=== PATIENT | male | born 1965 | race American Indian/Alaskan Native ===

== ENCOUNTER 2019-01-25 07:11 | Emergency (ER) | payer SELFPAY ==
[2019-01-25 08:09] LABS: Alanine Aminotransferase 10 units/L (7-56); Albumin 4.3 g/dL (3.9-5); BUN/Creatinine Ratio 9; Blood Urea Nitrogen 11 mg/dL (9-20); Calcium 9.2 mg/dL (8.4-10.2); Hemolysis Index 6
[2019-01-25 08:13] LABS: Basophils % (Auto) 0.1 % (0.0-1.8); Hematocrit 41.5 % (35.5-45.6); Hemoglobin 14.2 gm/dl (11.8-15.2); Lymphocytes # (Auto) 0.6 K/mm3 (1.2-5.4); Lymphocytes % (Auto) 7.6 % (13.4-35.0); Mean Corpuscular HGB Conc 34 % (32-34); Mean Corpuscular Volume 87 fl (84-94); Monocytes # (Auto) 0.2 K/mm3 (0.0-0.8); Monocytes % (Auto) 2.8 % (0.0-7.3); Platelet Count 214 K/mm3 (140-440); Red Blood Count 4.78 M/mm3 (3.65-5.03); Red Cell Distribution Width 13.1 % (13.2-15.2)
[2019-01-25] MEDS ORDERED: PEPCID IV ONE (08:20)
[2019-01-25] MEDS ORDERED: ANTIVERT PO ONE ×2 (08:20→10:13)
[2019-01-25] MEDS ORDERED: ZOFRAN IV ONE (08:20)
[2019-01-25] MEDS ORDERED: NACL 0.9% 1000 ML 1,000 ML IV ONE ×2 (08:20→10:13)
[2019-01-25 12:32] LABS: Bilirubin,Urine NEG (Negative); Blood,Urine NEG (Negative); Color,Urine Yellow (Yellow); Mucus,Urine FEW /HPF; Protein,Urine <15 mg/dL mg/dL (Negative); Urobilinogen,Urine < 2.0 mg/dL (<2.0); WBC,Urine < 1.0 /HPF (0.0-6.0)
[2019-01-25 12:41] VITALS: BP 176/94
--- NOTE | 2019-01-25 12:45 | Cat Scan Report ---
FINAL REPORT EXAM: CT HEAD/BRAIN WO CON HISTORY: Persistent vertigo TECHNIQUE: CT of the Head without IV contrast. PRIORS: None currently available. FINDINGS: Chronic appearing lacunar type infarct in the both basal ganglias and right thalamus. Similar finding noted within the right periventricular white matter. Decreased attenuation regions in the periventricular and subcortical white matter are nonspecific and may represent small vessel ischemic disease, encephalopathy, edema, or a demyelinating process. Smal l vessel ischemic disease (leukoaroaiosis) favored. Small focal chronic appearing infarcts in the right and left brainstem is unremarkable. Similar findi ngs in both cerebellar hemispheres. Vascular calcifications. There is no evidence for acute ischemia. There is no hemorrhage. There is no midline shift. There is no hydrocephalus. There is no mass. Age appropriate nassar-white matter attenuation is noted. There is no calvarial fracture. The temporal bones demonstrate aerated mastoid air cells. The middle ears appear unremarkable. Paranasal sinuses are unremarkable. Globes are intact. IMPRESSION: No acute intracranial findings. Chronic ischemic disease. Chronic appearing focal infarcts in the brainstem and cerebellar hemisphere s may be related to history.
--- NOTE | 2019-01-25 14:44 | Cat Scan Report ---
FINAL REPORT EXAM: CT ANGIO NECK HISTORY: Persistent vertigo TECHNIQUE: CTA of the Head with IV contrast. Coronal and sagittal reconstructed imaging provided. CTA of the Neck with IV contrast. Coronal and sagittal reconstructed imaging provided. Carotid stenos is calculated by the NASCET method. PRIORS: None currently available. FINDINGS: HEAD: The anterior and posterior circulations appear unremarkable. There is no aneurysm, dissection, vascular malformation, or significant vascular stenosis. There is n o evidence for vasculitis. Dominant right intracranial vertebral artery. Left is hypoplastic. NECK: RIGHT CAROTID: Origin: Unremarkable. Common: Unremarkable. Bifurcation: Unremarkable. Internal: Unremarkable. External: Unremarkable. There is no aneurysm, dissection, vascular malformation, or significant vascular stenosis. There is n o evidence for vasculitis. LEFT CAROTID: Origin: Unremarkable. Common: Unremarkable. Bifurcation: Unremarkable. Internal: Unremarkable. External: Unremarkable. There is no aneurysm, dissection, vascular malformation, or significant vascular stenosis. There is n o evidence for vasculitis. VERTEBRALS: Dominant right. Hypoplastic left. There is no aneurysm, dissection, vascular malformation, or significant vascular stenosis. There is n o evidence for vasculitis. OTHER: Partially imaged thoracic aorta does not demonstrate any aneurysm or dissection. Minimal atherosclero tic disease. Major branch arteries are patent. IMPRESSION: Unremarkable CTA of the head and neck.
--- NOTE | 2019-01-25 15:13 | Emergency Department Report ---
ED N/V/D HPI - General Chief complaint: Nausea/Vomiting/Diarrhea Stated complaint: DEHYDRATED/WEAK Time Seen by Provider: 01/25/19 08:13 Source: patient Mode of arrival: Wheelchair Limitations: No Limitations - History of Present Illness Initial comments: Patient is a 53-year-old Swazi male who is presenting with dizziness and nausea vomiting. Patient states symptoms started last night spontaneously. Patient states at this point he is just dry heaving. Patient feels very nauseous when he turns his head when he tries to sit up. Patient is better when lying flat. The patient denies any fevers chills cough cold or congestion at this time. - Related Data Previous Rx's Medication Instructions Recorded Last Taken Type Meclizine [Antivert] 25 mg PO TID PRN #12 tablet 01/25/19 Unknown Rx Ondansetron [Zofran Odt] 4 mg PO Q8HR PRN #10 tab.rapdis 01/25/19 Unknown Rx predniSONE [Deltasone] 20 mg PO QDAY #5 tab 01/25/19 Unknown Rx Allergies Allergy/AdvReac Type Severity Reaction Status Date / Time No Known Allergies Allergy Unverified 01/25/19 07:16 ED Review of Systems ROS: Stated complaint: DEHYDRATED/WEAK Other details as noted in HPI Comment: All other systems reviewed and negative ED Past Medical Hx - Social History Smoking Status: Never Smoker Substance Use Type: Alcohol, Cocaine - Medications Home Medications: Home Medications Medication Instructions Recorded Confirmed Last Taken Type Meclizine [Antivert] 25 mg PO TID PRN #12 tablet 01/25/19 Unknown Rx Ondansetron [Zofran Odt] 4 mg PO Q8HR PRN #10 tab.rapdis 01/25/19 Unknown Rx predniSONE [Deltasone] 20 mg PO QDAY #5 tab 01/25/19 Unknown Rx ED Physical Exam - General Limitations: No Limitations General appearance: alert, in distress - Head Head exam: Present: atraumatic, normocephalic - Eye Eye exam: Present: normal appearance - ENT ENT exam: Present: mucous membranes moist - Neck Neck exam: Present: normal inspection - Respiratory Respiratory exam: Present: normal lung sounds bilaterally. Absent: respiratory distress, wheezes, rales, rhonchi - Cardiovascular Cardiovascular Exam: Present: regular rate, normal rhythm. Absent: systolic murmur, diastolic murmur, rubs, gallop - GI/Abdominal GI/Abdominal exam: Present: soft, normal bowel sounds. Absent: distended, tenderness, guarding, rebound - Rectal Rectal exam: Present: deferred - Extremities Exam Extremities exam: Present: normal inspection - Back Exam Back exam: Present: normal inspection - Neurological Exam Neurological exam: Present: alert, oriented X3 - Psychiatric Psychiatric exam: Present: normal affect, normal mood - Skin Skin exam: Present: warm, dry, intact, normal color. Absent: rash ED Course Vital Signs 01/25/19 01/25/19 01/25/19 07:18 08:52 12:39 Temperature 97.7 F 98.4 F Pulse Rate 52 L 65 Respiratory 16 16 16 Rate Blood Pressure 176/94 Blood Pressure 166/85 [Right] O2 Sat by Pulse 97 99 Oximetry ED Medical Decision Making - Lab Data Result diagrams: 01/25/19 07:35 01/25/19 07:35 - Radiology Data Patient received a liter of IV fluid and Zofran and Antivert. After to recheck the patient after these medications patient continued to have severe dizziness. Decision was made to rule out posterior stroke. Patient has CTA of the head and neck performed which showed no acute abdomen to the vessels. Patient's CT head without contrast shows chronic ischemic changes but no acute ischemic changes are present. After the second liter of fluid and 1 additional dose of Antivert patient is started to have some improvement. Patient was monitored approximately 6 hours before he started to feel better. Patient be discharged home. Critical care attestation.: If time is entered above; I have spent that time in minutes in the direct care of this critically ill patient, excluding procedure time. ED Disposition Clinical Impression: Vertigo Disposition: DC-01 TO HOME OR SELFCARE Is pt being admited?: No Does the pt Need Aspirin: No Condition: Stable Instructions: Benign Paroxysmal Positional Vertigo (ED) Referrals: EFREN KEYES MD [Primary Care Provider] - 3-5 Days Time of Disposition: 15:13
== END 2019-01-25 15:26 | disposition home or self-care (01) ==
LOC: ED 07:11
DX: R42 Dizziness and giddiness (principal); R11.2 Nausea with vomiting, unspecified
CPT/HCPCS: 36415; 70450; 70496; 70498; 80053; 81001; 85025; 93005; 93010; 96361; 96374; 96375; 99284; J2405; J7030; Q9967

== ENCOUNTER 2020-07-21 18:42 | Emergency (ER) | payer SELFPAY ==
[2020-07-21] MEDS ORDERED: SUCCINYLCHOLINE CHLORIDE 200 MG/10 ML INJ MDV ONE (19:00)
[2020-07-21] MEDS ORDERED: ETOMIDATE 20 MG/10 ML INJ IV ONE (19:00)
--- NOTE | 2020-07-21 19:00 | Cat Scan Report ---
CT head/brain wo con INDICATION: neuro deficits <6hrs or sx present upon awakening. TECHNIQUE: Routine CT head without contrast. All CT scans at this location are performed using CT dos e reduction for ALARA by means of automated exposure control. COMPARISON: None. FINDINGS: BRAIN / INTRACRANIAL CONTENTS: There is a right thalamic hemorrhage that measures about 2.5 cm in dim ension with mild surrounding edema and mild local mass effect. There is a compression to the ventricl e with blood in the right lateral ventricle, third ventricle, and fourth ventricle, without hydroceph alus. ORBITS: No significant abnormality of visualized orbits. SINUSES / MASTOIDS: No significant abnormality of visualized sinuses and mastoid air cells. ADDITIONAL FINDINGS: None. IMPRESSION: 1. Right thalamic hemorrhage with decompression into the ventricular system. No hydrocephalus or sign ificant adverse mass effect at present. CODE STROKE: Time of Communication (INJECTION PRESS OPERATOR/CDT): 5:55 PM Licensed Practitioner Receiving Report: ER physician Signer Name: Addy Jarquin MD Signed: 07/21/2020 6:55 PM Workstation Name: [id number]
[2020-07-21 19:08] LABS: Basophils % (Auto) 0.4 % (0.0-1.8); Eosinophils # (Auto) 0.1 K/mm3 (0.0-0.4); Eosinophils % (Auto) 0.5 % (0.0-4.3); Lymphocytes # (Auto) 1.6 K/mm3 (1.2-5.4); Lymphocytes % (Auto) 14.6 % (13.4-35.0); Mean Corpuscular HGB Conc 36 % (32-34); Mean Corpuscular Volume 85 fl (84-94); Monocytes % (Auto) 9.6 % (0.0-7.3); Platelet Count 235 K/mm3 (140-440); Red Blood Count 4.35 M/mm3 (3.65-5.03); Red Cell Distribution Width 12.8 % (13.2-15.2)
[2020-07-21] MEDS ORDERED: SODIUM CHLORIDE 0.9% 1000 ML 2,000 ML ONE (19:08)
--- NOTE | 2020-07-21 19:11 | Emergency Department Report ---
ED Neuro Deficit HPI - General Chief Complaint: Altered Mental Status Stated Complaint: POSS STOKE Time Seen by Provider: 07/21/20 18:48 Source: EMS Mode of arrival: Stretcher Limitations: Altered Mental Status - History of Present Illness Initial Comments: [facility] TeleStroke Metrics: LKW: 1800 Door Time: 1842 [facility] Contacted: 1843 [facility] at Bedside: 1850 NIHSS: 1855 Decision on Alteplase: Not to give due to his acute intracranial hemorrhage Interventional Candidate: Not a candidate due to his acute intracranial hemorrhage Chief Complaint: Altered mental status HPI: Asked to see this patient in emergent telemedicine consultation utilizing interactive audio and video technologies. Consultation was performed with assistance of ancillary / medical staff at bedside. 54-year-old -[place]ian male who comes to the emergency room by EMS as a stroke alert for altered mental status and left-sided weakness. No family is currently at bedside. EMS reports that the patient had some type of stroke in January 2020 and had fully resolved. His medication list is unknown. According to EMS, had spoken to the patient around 6 PM and he sounded fine. She arrived home around 6:30 PM, and found him on the floor. He apparently fell. She noted left-sided weakness. EMS was called. Blood sugar was 180 in the field and blood pressure was 119/80. Currently, the patient remains nonverbal and poorly responsive. Head CT shows an acute right thalamic hemorrhage with intraventricular extension. Blood pressures have been stable with systolics in the 120s. PMH: Prior ischemic stroke in January 2020 and SOC: Patient is . FMH: Unknown. ROS: Unobtainable at this time due to his altered mental status. No family at bedside. VS: Pulse 78, blood pressure 120/78, oxygen saturation 94% Exam: Patient is in no apparent distress. Patient appears as stated age. No ob vious acute respiratory or cardiac distress. Patient is well groomed and well- nourished. 1a- LOC: Not keenly responsive - 2 1b- LOC questions: Answers neither questions correctly - 2 1c- LOC commands- Performs neither tasks correctly- 2 2- Gaze: Normal; no gaze paresis or gaze deviation - 0 3- Visual Hagen: normal, no Visual field deficit - 0 4- Facial movements: no facial palsy - 0 5- Upper limb motor - bilateral arm drifts - 6 6- Lower limb motor - bilateral leg drifts - 6 7- Limb Coordination: absent ataxia - 0 8- Sensory: severe sensory loss - 2 9- Language - global aphasia - 3 10- Speech - severe dysarthria - 2 11- Neglect / Extinction - none found - 0 NIHSS score: 25 Diagnostic Data: Blood glucose 180 CT head showed an acute right thalamic intracranial hemorrhage with significant intraventricular extension involving the right lateral ventricle, third ventricle, and fourth ventricle. Medical Data Reviewed: 1.Data?reviewed include clinical labs, radiology,?and medical tests; 2.Tests?results discussed w/performing or interpreting physician; 3.Obtaining/reviewing old medical records; 4.Obtaining?case history from another source; 5.Independent?review of image, tracing, or specimen. Medical Decision Making: - Extensive number of diagnosis or management options are considered below. - Extensive amount of complex data reviewed. - High risk of complication and/or morbidity or mortality are associated with differential diagnostic considerations below. - There may be?uncertain?outcome and increased probability of prolonged functional impairment or high probability of severe prolonged functional impairment associated with some of these differential diagnosis. Differential Diagnosis for Stroke: 1.?Cardioembolic?stroke 2. Small vessel disease/lacune 3. Thromboembolic, [id number] mechanism 4.?Hypercoagulable?state-related infarct 5. Transient ischemic attack 6. Thrombotic mechanism, large artery disease Assessment: 1. 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 Hypertension 3. Prior stroke in January 2020 Recommendations: Patient has an acute right thalamic hemorrhage with significant intraventricular extension involving the lateral ventricle, third ventricle, and fourth ventricle. Patient is at high risk of developing obstructive hydrocephalus. Patient will be intubated for airway protection. Patient will be transferred to a tertiary center that can offer emergent neurosurgical services. Maintain systolic blood pressure be less than 150 Consult inpatient neurology team to assist with evaluation and management Continue supportive care Thank you for allowing [facility] to participate in the care of your patient. Please call me, Dr. Hurley, with any questions at [phone]. Case discussed with the ER staff and Dr. Martino. Critical Care notation: I was called to see this critical patient emergently. I personally evaluated this critical patient for acute stroke evaluation, and determining their eligibi lity for IV Alteplase and interventional therapies. I have spent approximately 8 minutes with the patient, including time at bedside, time discussing the case with other physicians, reviewing plan of care, and time independently reviewing the records and scans. - Related Data Home Medications: Previous Rx's Medication Instructions Recorded Last Taken Type Meclizine [Antivert] 25 mg PO TID PRN #12 tablet 01/25/19 Unknown Rx Ondansetron [Zofran Odt] 4 mg PO Q8HR PRN #10 tab.rapdis 01/25/19 Unknown Rx predniSONE [Deltasone] 20 mg PO QDAY #5 tab 01/25/19 Unknown Rx Allergies/Adverse Reactions: Allergies Allergy/AdvReac Type Severity Reaction Status Date / Time No Known Allergies Allergy Unverified 01/25/19 07:16 ED Review of Systems ROS: Stated complaint: POSS STOKE Other details as noted in HPI ED Past Medical Hx - Social History Smoking Status: Never Smoker Substance Use Type: Alcohol, Cocaine - Medications Home Medications: Home Medications Medication Instructions Recorded Confirmed Last Taken Type Meclizine [Antivert] 25 mg PO TID PRN #12 tablet 01/25/19 Unknown Rx Ondansetron [Zofran Odt] 4 mg PO Q8HR PRN #10 tab.rapdis 01/25/19 Unknown Rx predniSONE [Deltasone] 20 mg PO QDAY #5 tab 01/25/19 Unknown Rx ED Neuro Physical Exam - General Suspected Stroke: No Critical care attestation.: If time is entered above; I have spent that time in minutes in the direct care of this critically ill patient, excluding procedure time. ED Disposition Clinical Impression: Thalamic hemorrhage Disposition: DC/TX-70 ANOTHER TYPE HLTHCARE Is pt being admited?: No Does the pt Need Aspirin: No Condition: Critical
[2020-07-21] MEDS ORDERED: LIP THERAPY VASELINE TP PRN (19:13)
[2020-07-21] MEDS ORDERED: MINERAL OIL/PETROLATUM, WHITE OPHTH OINT 3.5 GM OU PRN (19:13)
[2020-07-21 19:15] LABS: Hematocrit 36.8 % (35.5-45.6); Hemoglobin 13.3 gm/dl (11.8-15.2)
[2020-07-21 19:20] LABS: INR 0.96 (0.87-1.13); Partial Thromboplastin Time 28.6 Sec. (24.2-36.6)
[2020-07-21 19:23] LABS: BUN/Creatinine Ratio 9; Blood Urea Nitrogen 18 mg/dL (9-20); Calcium 9.5 mg/dL (8.4-10.2); Hemolysis Index 14
[2020-07-21 19:27] LABS: Alanine Aminotransferase 12 units/L (7-56); Albumin 4.7 g/dL (3.9-5)
--- NOTE | 2020-07-21 19:27 | Emergency Department Report ---
ED Neuro Deficit HPI - General Chief Complaint: Altered Mental Status Stated Complaint: POSS STOKE Time Seen by Provider: 07/21/20 18:48 Source: EMS Mode of arrival: Stretcher Limitations: Altered Mental Status - History of Present Illness Initial Comments: Patient is 54-year-old male with unknown past medical history except for possible stroke few month ago according to his reported to EMS and that completely resolved by itself. Patient brought to the emergency room via EMS from home for evaluation of possible stroke. Patient stated that last time she saw him was 6:00 PM and he was sound fine and when she came back from outside around 6:30 PM she found him on the floor with altered mental status and unresponsive. Upon arrival to the ER patient immediately moved to CT for a stat CT brain. Stroke telemetry neurology immediately consulted and patient examined by Dr. Chung. CT brain showed a right thalamic hemorrhage with extension to the ventricles. No mass-effect at this moment. When patient returned from the CT scan patient became more obtunded. GCS 8 3 patient immediately intubated by me for airway protection -: Sudden Location: right face, right arm, altered Presenting Symptoms: Present: Altered Mental Status - Related Data Home Medications: Previous Rx's Medication Instructions Recorded Last Taken Type Meclizine [Antivert] 25 mg PO TID PRN #12 tablet 01/25/19 Unknown Rx Ondansetron [Zofran Odt] 4 mg PO Q8HR PRN #10 tab.rapdis 01/25/19 Unknown Rx predniSONE [Deltasone] 20 mg PO QDAY #5 tab 01/25/19 Unknown Rx Allergies/Adverse Reactions: Allergies Allergy/AdvReac Type Severity Reaction Status Date / Time No Known Allergies Allergy Unverified 01/25/19 07:16 ED Review of Systems ROS: Stated complaint: POSS STOKE Other details as noted in HPI Comment: Unobtainable due to pts medical conditions ED Past Medical Hx - Social History Smoking Status: Never Smoker Substance Use Type: Alcohol, Cocaine - Medications Home Medications: Home Medications Medication Instructions Recorded Confirmed Last Taken Type Meclizine [Antivert] 25 mg PO TID PRN #12 tablet 01/25/19 Unknown Rx Ondansetron [Zofran Odt] 4 mg PO Q8HR PRN #10 tab.rapdis 01/25/19 Unknown Rx predniSONE [Deltasone] 20 mg PO QDAY #5 tab 01/25/19 Unknown Rx ED Neuro Physical Exam - General Limitations: Altered Mental Status General appearance: obtunded Suspected Stroke: Yes - Head Head exam: Present: atraumatic, normocephalic, normal inspection - Eye Eye exam: Present: normal appearance - ENT ENT exam: Present: normal exam, normal orophraynx, mucous membranes moist - Neck Neck exam: Present: normal inspection - Respiratory Respiratory exam: Present: normal lung sounds bilaterally - Cardiovascular Cardiovascular Exam: Present: regular rate, normal rhythm, normal heart sounds - GI/Abdominal GI/Abdominal exam: Present: soft, normal bowel sounds. Absent: distended, tenderness, guarding, rebound, rigid, hyperactive bowel sounds, hypoactive bowel sounds, organomegaly, mass, bruit, pulsatile mass, hernia - Extremities Exam Extremities exam: Present: normal inspection, full ROM - Back Exam Back exam: Present: normal inspection, full ROM - Neurological Exam Neurological exam: Present: altered - NIHSS Assessment Interval: Baseline 1a. Level of Consciousness: coma/unresponsive 1b. LOC Questions: dysarthric/intubated 1c. LOC Commands: performs no tasks correctly 2. Best Gaze: partial gaze palsy 3. Visual: bilateral hemianopia 4. Facial Palsy: minor paralysis 5b. Motor Arm Right: drift 5a. Motor Arm Left: drift 6a. Motor Leg Left: drift 6b. Motor Leg Right: drift 7. Limb Ataxia: absent 8. Sensory: coma/unresponsive 9. Best Language: coma/unresponsive 10. Dysarthria: mute/anarrthric 11. Extinction/Inattention: no abnormality Total Score: 22 Stroke Severity: Severe Stroke - Skin Skin exam: Present: warm, intact, normal color ED Course Vital Signs 07/21/20 07/21/20 07/21/20 19:35 19:45 20:00 Pulse Rate 71 68 66 Respiratory 19 19 19 Rate Blood Pressure Blood Pressure 138/99 151/95 150/99 [Left] O2 Sat by Pulse 100 100 100 Oximetry 07/21/20 07/21/20 07/21/20 20:10 20:33 20:42 Pulse Rate 63 77 58 L Respiratory 18 18 Rate Blood Pressure Blood Pressure 152/100 134/100 [Left] O2 Sat by Pulse 100 98 100 Oximetry 07/21/20 07/21/20 07/21/20 21:04 21:15 21:30 Pulse Rate 55 L 53 L 53 L Respiratory 21 20 20 Rate Blood Pressure 111/75 117/77 Blood Pressure 106/71 [Left] O2 Sat by Pulse 100 100 100 Oximetry 07/21/20 07/21/20 07/21/20 21:37 21:45 22:00 Pulse Rate 53 L 53 L 52 L Respiratory 21 20 20 Rate Blood Pressure 113/79 119/76 Blood Pressure 117/77 [Left] O2 Sat by Pulse 100 100 100 Oximetry 07/21/20 07/21/20 22:15 22:45 Pulse Rate 51 L 63 Respiratory 20 24 Rate Blood Pressure 125/75 130/74 Blood Pressure [Left] O2 Sat by Pulse 100 100 Oximetry - Reevaluation(s) Reevaluation #1: 07/21/20 19:23 I discussed the patient with [facility] personnel historic preservationist Kimmy. She stated that she will call me back. Reevaluation #2: 07/21/20 19:47 I discussed the patient with Dr. Alexandre, neuro garbage person at [facility] in she stated that she will accept the patient but they do not have any bed availability and she will with the patient on the waiting list. Reevaluation #3: 07/21/20 19:50 Contacted [facility] for possible transfer. Reevaluation #4: 07/21/20 20:06 I discussed the patient with Dr. Castellano, neurosurgeon from [facility] [place]. He advised to repeat the CT brain to see the extension of the hemorrhage since patient condition started deteriorating so he can triage patient better but he stated that he accepted the patient to be transferred to his facility. Reevaluation #5: 07/21/20 22:45 I discussed the patient with [facility] for possible transfer as I just learned that [facility] available bed. [facility] was not called initially because 1 of my colleagues trying to send the patient he was told that they are on critical care diversion. However [facility] informed me that they do not have any critical care beds available. 07/21/20 22:47 - Intubation Time Out Performed: Yes Sedative: Etomidate Paralytic: Succinylcholine Laryngoscope: Ginny Size: 4 ET Tube Size: 7.5 Tube Secured Depth (cm): 20 Tube Secured Location: teeth Tube Placement Confirmation: visualized tube passing t, equal breath sounds bilat, no breath sounds over epi, confirmation by capnometr Patient Tolerated Procedure: well, no complications Intubation Complications: none - Lab Data Result diagrams: 07/21/20 18:56 07/21/20 18:56 Lab Results 07/21/20 07/21/20 07/21/20 Range/Units 18:56 18:56 18:56 WBC 10.8 (4.5-11.0) K/mm3 RBC 4.35 (3.65-5.03) M/mm3 Hgb 13.3 (11.8-15.2) gm/dl Hct 36.8 (35.5-45.6) % MCV 85 (84-94) fl MCH 31 (28-32) pg MCHC 36 H (32-34) % RDW 12.8 L (13.2-15.2) % Plt Count 235 (140-440) K/mm3 Lymph % (Auto) 14.6 (13.4-35.0) % Amelia % (Auto) 9.6 H (0.0-7.3) % Eos % (Auto) 0.5 (0.0-4.3) % Baso % (Auto) 0.4 (0.0-1.8) % Lymph # 1.6 (1.2-5.4) K/mm3 Amelia # 1.0 H (0.0-0.8) K/mm3 Eos # 0.1 (0.0-0.4) K/mm3 Baso # 0.0 (0.0-0.1) K/mm3 Seg Neutrophils % 74.9 H (40.0-70.0) % Seg Neutrophils # 8.1 H (1.8-7.7) K/mm3 PT 13.0 (12.2-14.9) Sec. INR 0.96 (0.87-1.13) APTT 28.6 (24.2-36.6) Sec. Thrombin Time (15.1-19.6) Sec. ABG pH (7.350-7.450) pH Units ABG pCO2 mm Hg ABG pO2 (80.0-90.0) mm Hg ABG HCO3 (20.0-26.0) mmol/L ABG O2 Saturation (95.0-99.0) % ABG O2 Content (0.0-44) ABG Base Excess (-2.0-3.0) mmol/L ABG Hemoglobin (14.0-18.0) gm/dl ABG Carboxyhemoglobin (0.0-5.0) % ABG Methemoglobin (0.0-1.5) % Oxyhemoglobin (95.0-99.0) % FiO2 % Sodium 133 L (137-145) mmol/L Potassium 2.8 L* (3.6-5.0) mmol/L Chloride 90.5 L (98-107) mmol/L Carbon Dioxide 22 (22-30) mmol/L Anion Gap 23 mmol/L BUN 18 (9-20) mg/dL Creatinine 2.0 H (0.8-1.3) mg/dL Estimated GFR 42 ml/min BUN/Creatinine Ratio 9 % Glucose 208 H (75-100) mg/dL Calcium 9.5 (8.4-10.2) mg/dL Total Bilirubin (0.1-1.2) mg/dL Direct Bilirubin (0-0.2) mg/dL Indirect Bilirubin mg/dL AST (5-40) units/L ALT (7-56) units/L Alkaline Phosphatase (35-129) units/L Troponin T < 0.010 (0.00-0.029) ng/mL Total Protein (6.3-8.2) g/dL Albumin (3.9-5) g/dL Albumin/Globulin Ratio % Urine Opiates Screen Urine Methadone Screen Ur Barbiturates Screen Ur Phencyclidine Scrn Ur Amphetamines Screen U Benzodiazepines Scrn Urine Cocaine Screen U Marijuana (THC) Screen Drugs of Abuse Note Blood Type Antibody Screen 07/21/20 07/21/20 07/21/20 Range/Units 18:56 19:04 19:23 WBC (4.5-11.0) K/mm3 RBC (3.65-5.03) M/mm3 Hgb (11.8-15.2) gm/dl Hct (35.5-45.6) % MCV (84-94) fl MCH (28-32) pg MCHC (32-34) % RDW (13.2-15.2) % Plt Count (140-440) K/mm3 Lymph % (Auto) (13.4-35.0) % Amelia % (Auto) (0.0-7.3) % Eos % (Auto) (0.0-4.3) % Baso % (Auto) (0.0-1.8) % Lymph # (1.2-5.4) K/mm3 Amelia # (0.0-0.8) K/mm3 Eos # (0.0-0.4) K/mm3 Baso # (0.0-0.1) K/mm3 Seg Neutrophils % (40.0-70.0) % Seg Neutrophils # (1.8-7.7) K/mm3 PT (12.2-14.9) Sec. INR (0.87-1.13) APTT (24.2-36.6) Sec. Thrombin Time 15.5 (15.1-19.6) Sec. ABG pH (7.350-7.450) pH Units ABG pCO2 mm Hg ABG pO2 (80.0-90.0) mm Hg ABG HCO3 (20.0-26.0) mmol/L ABG O2 Saturation (95.0-99.0) % ABG O2 Content (0.0-44) ABG Base Excess (-2.0-3.0) mmol/L ABG Hemoglobin (14.0-18.0) gm/dl ABG Carboxyhemoglobin (0.0-5.0) % ABG Methemoglobin (0.0-1.5) % Oxyhemoglobin (95.0-99.0) % FiO2 % Sodium (137-145) mmol/L Potassium (3.6-5.0) mmol/L Chloride (98-107) mmol/L Carbon Dioxide (22-30) mmol/L Anion Gap mmol/L BUN (9-20) mg/dL Creatinine (0.8-1.3) mg/dL Estimated GFR ml/min BUN/Creatinine Ratio % Glucose (75-100) mg/dL Calcium (8.4-10.2) mg/dL Total Bilirubin 0.70 (0.1-1.2) mg/dL Direct Bilirubin < 0.2 (0-0.2) mg/dL Indirect Bilirubin 0.5 mg/dL AST 23 (5-40) units/L ALT 12 (7-56) units/L Alkaline Phosphatase 80 (35-129) units/L Troponin T (0.00-0.029) ng/mL Total Protein 8.3 H (6.3-8.2) g/dL Albumin 4.7 (3.9-5) g/dL Albumin/Globulin Ratio 1.3 % Urine Opiates Screen Presumptive negative Urine Methadone Screen Presumptive negative Ur Barbiturates Screen Presumptive negative Ur Phencyclidine Scrn Presumptive negative Ur Amphetamines Screen Presumptive negative U Benzodiazepines Scrn Presumptive negative Urine Cocaine Screen Presumptive positive U Marijuana (THC) Screen Presumptive negative Drugs of Abuse Note Disclamer Blood Type Antibody Screen 07/21/20 07/21/20 07/21/20 Range/Units 21:11 21:25 23:10 WBC (4.5-11.0) K/mm3 RBC (3.65-5.03) M/mm3 Hgb (11.8-15.2) gm/dl Hct (35.5-45.6) % MCV (84-94) fl MCH (28-32) pg MCHC (32-34) % RDW (13.2-15.2) % Plt Count (140-440) K/mm3 Lymph % (Auto) (13.4-35.0) % Amelia % (Auto) (0.0-7.3) % Eos % (Auto) (0.0-4.3) % Baso % (Auto) (0.0-1.8) % Lymph # (1.2-5.4) K/mm3 Amelia # (0.0-0.8) K/mm3 Eos # (0.0-0.4) K/mm3 Baso # (0.0-0.1) K/mm3 Seg Neutrophils % (40.0-70.0) % Seg Neutrophils # (1.8-7.7) K/mm3 PT (12.2-14.9) Sec. INR (0.87-1.13) APTT (24.2-36.6) Sec. Thrombin Time (15.1-19.6) Sec. ABG pH 7.471 H 7.362 (7.350-7.450) pH Units ABG pCO2 34.5 43.1 mm Hg ABG pO2 125.8 H 134.4 H (80.0-90.0) mm Hg ABG HCO3 24.6 23.9 (20.0-26.0) mmol/L ABG O2 Saturation 98.6 98.6 (95.0-99.0) % ABG O2 Content 16.3 16.5 (0.0-44) ABG Base Excess 1.3 -1.5 (-2.0-3.0) mmol/L ABG Hemoglobin 12.3 L 12.3 L (14.0-18.0) gm/dl ABG Carboxyhemoglobin 5.1 H 4.1 (0.0-5.0) % ABG Methemoglobin 0.5 0.5 (0.0-1.5) % Oxyhemoglobin 93.1 L 94.0 L (95.0-99.0) % FiO2 30 30 % Sodium (137-145) mmol/L Potassium (3.6-5.0) mmol/L Chloride (98-107) mmol/L Carbon Dioxide (22-30) mmol/L Anion Gap mmol/L BUN (9-20) mg/dL Creatinine (0.8-1.3) mg/dL Estimated GFR ml/min BUN/Creatinine Ratio % Glucose (75-100) mg/dL Calcium (8.4-10.2) mg/dL Total Bilirubin (0.1-1.2) mg/dL Direct Bilirubin (0-0.2) mg/dL Indirect Bilirubin mg/dL AST (5-40) units/L ALT (7-56) units/L Alkaline Phosphatase (35-129) units/L Troponin T (0.00-0.029) ng/mL Total Protein (6.3-8.2) g/dL Albumin (3.9-5) g/dL Albumin/Globulin Ratio % Urine Opiates Screen Urine Methadone Screen Ur Barbiturates Screen Ur Phencyclidine Scrn Ur Amphetamines Screen U Benzodiazepines Scrn Urine Cocaine Screen U Marijuana (THC) Screen Drugs of Abuse Note Blood Type O POSITIVE Antibody Screen Negative - EKG Data -: EKG Interpreted by Me EKG shows normal: sinus rhythm Rate: normal Interpretation: no acute changes - Radiology Data Radiology results: report reviewed - Medical Decision Making Patient is 54-year-old male with unknown past medical history except for possible stroke few month ago according to his reported to EMS and that completely resolved by itself. Patient brought to the emergency room via EMS from home for evaluation of possible stroke. Patient stated that last time she saw him was 6:00 PM and he was sound fine and when she came back from outside around 6:30 PM she found him on the floor with altered mental status and unresponsive. Upon arrival to the ER patient immediately moved to CT for a stat CT brain. Stroke telemetry neurology immediately consulted and patient examined by Dr. Chung. CT brain showed a right thalamic hemorrhage with extension to the ventricles. No mass-effect at this moment. When patient returned from the CT scan patient became more obtunded. GCS 8 3 patient immediately intubated by me for airway protection. I discussed the patient immediately with [facility] transfer center and I talked to , he stated that they do not have any beds but they will keep patient on the waiting list. Andrzej is on critical care diversion. I contacted [facility] and I discussed the patient with Dr. Castellano, he advised that he accepted the patient but he asked to repeat the CT to better triage patient. EMS immediately contacted by the nurse at taking care of the patient Mr. Marrero and also charge nurse involved since we are unable to fly the patient secondary to weather. Multiple phone calls with different EMS so he can get the patient transfer failed and finally [facility] arrived to transfer the patient. Me anwhile I discussed the patient condition with Dr. Castellano. Patient remained stable however patient started developing seizure. Patient given Ativan 1 mg IV and started on Keppra. Critical Care Time: Yes Critical care time in (mins) excluding proc time.: 75 Critical care attestation.: If time is entered above; I have spent that time in minutes in the direct care of this critically ill patient, excluding procedure time. ED Disposition Clinical Impression: Thalamic hemorrhage, Acute respiratory failure, CVA (cerebral vascular accident), Acute hypokalemia Disposition: DC/TX-70 ANOTHER TYPE HLTHCARE Is pt being admited?: No Condition: Stable
[2020-07-21 19:33] LABS: Bilirubin,Direct < 0.2 mg/dL (0-0.2)
[2020-07-21 19:48] LABS: Amphetamine Screen,Urine PRESUMPTIVE NEGATIVE; Benzodiazepines Screen,Urine PRESUMPTIVE NEGATIVE; Cannabinoid Screen,Urine PRESUMPTIVE NEGATIVE; Cocaine Screen,Urine PRESUMPTIVE POSITIVE; Methadone Screen,Urine PRESUMPTIVE NEGATIVE; Opiate Screen,Urine PRESUMPTIVE NEGATIVE
[2020-07-21] MEDS ORDERED: fentaNYL DRIP Premix 2,000 MCG/100 ML BAG IV ONE (19:49)
[2020-07-21] MEDS ORDERED: POTASSIUM CHLORIDE 10 MEQ 10 MEQ/100 ML BAG IV SCH (20:00)
--- NOTE | 2020-07-21 20:02 | XRay Report ---
ABDOMEN 1 VIEW INDICATION / CLINICAL INFORMATION: tube placement. COMPARISON: None available. FINDINGS: TUBES / LINES: NG tube with its tip and sidehole projected over the gastric lumen. BOWEL GAS PATTERN: No significant abnormality. FREE AIR / EXTRALUMINAL GAS: None seen. ADDITIONAL FINDINGS: No significant additional findings. IMPRESSION: 1. NG tube with its tip and sidehole projected over the gastric lumen. Signer Name: Moshe Tony MD Signed: 07/21/2020 7:57 PM Workstation Name: [id number]
--- NOTE | 2020-07-21 20:11 | XRay Report ---
CHEST 1 VIEW INDICATION / CLINICAL INFORMATION: ETT placement. COMPARISON: None available. FINDINGS: SUPPORT DEVICES: An endotracheal tube is not visualized within the [id number]. Enteric tube with t ip terminating in the gastric body and sidehole at or just distal to the gastroesophageal junction. HEART / MEDIASTINUM: No significant abnormality. LUNGS / PLEURA: No significant pulmonary or pleural abnormality. No pneumothorax. ADDITIONAL FINDINGS: No significant additional findings. IMPRESSION: 1. Endotracheal tube not visualized within the [id number]. Recommend clinical correlation and repo sitioning. This was discussed with Frantz RN in the Emergency Department, at 7:04 PM on 07/21/2020. 2. Appropriately positioned enteric tube. 3. No acute cardiopulmonary abnormality identified. Signer Name: Toña Johnson MD Signed: 07/21/2020 8:06 PM Workstation Name: [id number]
[2020-07-21] MEDS: fentaNYL 100 MCG/2 ML INJ IV PRN ×2 (20:20→23:20)
--- NOTE | 2020-07-21 20:38 | Cat Scan Report ---
CT head/brain wo con INDICATION: stroke. TECHNIQUE: Routine CT head without contrast. All CT scans at this location are performed using CT dos e reduction for ALARA by means of automated exposure control. COMPARISON: Head CT done earlier on 07/21/2020. FINDINGS: BRAIN / INTRACRANIAL CONTENTS: There has been no appreciable change in the right thalamic hemorrhage measuring about 2.5 cm with similar mild local mass effect and decompression into the ventricular sys tem. Ventricular size is slightly increased from the prior study. ORBITS: No significant abnormality of visualized orbits. SINUSES / MASTOIDS: No significant abnormality of visualized sinuses and mastoid air cells. ADDITIONAL FINDINGS: None. IMPRESSION: 1. Stable right thalamic hemorrhage and decompression into the ventricular system. Slightly increased ventricular size from the prior study. Signer Name: Addy Jarquin MD Signed: 07/21/2020 8:34 PM Workstation Name: [id number]
--- NOTE | 2020-07-21 20:56 | XRay Report ---
CHEST 1 VIEW INDICATION / CLINICAL INFORMATION: Post intubation tube placement. COMPARISON: 07/21/2020 at 07:1 5 FINDINGS: SUPPORT DEVICES: Interval placement of ET tube with its tip at the level of the clavicle. Previously noted NG tube in stable position. HEART / MEDIASTINUM: Stable. LUNGS / PLEURA: No significant pulmonary or pleural abnormality. No pneumothorax or effusion. ADDITIONAL FINDINGS: No significant additional findings. IMPRESSION: 1. Interval placement of ET tube with its tip at the level the clavicles. 2. NG tube in stable position. 3. Additional findings are stable. Signer Name: Moshe Tony MD Signed: 07/21/2020 8:51 PM Workstation Name: [id number]
[2020-07-21] MEDS ORDERED: SODIUM CHLORIDE 0.9% 500 ML 500 ML IV ONE (20:59)
[2020-07-21] MEDS ORDERED: fentaNYL DRIP Premix 2,000 MCG/100 ML BAG IV SCH (21:00)
[2020-07-21] MEDS ORDERED: MANNITOL 20% 500 ML IV ONE (21:04)
[2020-07-21 21:37] LABS: ABG Base Excess 1.3 mmol/L (-2.0-3.0); ABG HCO3 24.6 mmol/L (20.0-26.0); ABG Methemoglobin 0.5 % (0.0-1.5); ABG Oxygen Saturation 98.6 % (95.0-99.0); ABG PCO2 34.5 mm Hg; ABG PH 7.471 pH Units (7.350-7.450); ABG PO2 125.8 mm Hg (80.0-90.0)
[2020-07-21] MEDS ORDERED: levETIRAcetam 1000 MG/NS 0.75% 1,000 MG/100 ML BAG IV ONE ×2 (22:54→22:59)
[2020-07-21] MEDS ORDERED: LORazepam 2 MG/ML VIAL ONE (22:54)
[2020-07-21] MEDS ORDERED: LORazepam 2 MG/ML VIAL IV ONE (22:58)
[2020-07-21] MEDS ORDERED: MIDAZOLAM 2 MG/2 ML INJ IV PRN (23:02)
[2020-07-21 23:18] LABS: ABG Base Excess -1.5 mmol/L (-2.0-3.0); ABG HCO3 23.9 mmol/L (20.0-26.0); ABG Methemoglobin 0.5 % (0.0-1.5); ABG Oxygen Saturation 98.6 % (95.0-99.0); ABG PCO2 43.1 mm Hg; ABG PH 7.362 pH Units (7.350-7.450); ABG PO2 134.4 mm Hg (80.0-90.0)
[2020-07-21 23:34] VITALS: BP 143/92
[2020-07-21] MEDS ORDERED: MIDAZOLAM 100 MG in SODIUM CHLORIDE 0.9% 80 ML IV SCH (23:45)
== END 2020-07-21 23:40 | disposition other institution (70) ==
LOC: ED 18:42
DX: E87.6 Hypokalemia (principal); E32.8 Other diseases of thymus; J96.00 Acute respiratory failure, unspecified whether with hypoxia or hypercapnia
CPT/HCPCS: 31500; 36415; 70450; 71045; 74018; 80048; 80076; 80307; 82803; 84484; 85025; 85610; 85670; 85730; 86850; 86900; 86901; 93005; 96365; 96368; 96375; 99285; J0330; J1953; J2060; J2150; J2250; J2704; J3010; J3480; J7030; 94002

== ENCOUNTER 2022-08-14 07:11 | Day surgery (SDC) | payer MEDICAID, OTHER ==
[~2022-08-14 07:11] MED LIST: SODIUM CHLORIDE 0.9% 1000 ML 1,000 ML IV SCH
[2022-08-14] MEDS ORDERED: propofoL 200 MG/20 ML VIAL IV ONE (07:56)
[2022-08-14] MEDS ORDERED: LIDOCAINE MPF (2%) 20 MG/1 ML VIAL 5 ML ONE (07:57)
--- NOTE | 2022-08-14 08:33 | Short Stay Summary ---
Short Stay Documentation Date of service: 08/14/22 Narrative H&P: The patient presents for his first screening colonoscopy. Average risk profile. - History Past Medical History: hypertension, hyperlipidemia, stroke Past Surgical History: Other (hand surgery) Social history: , lives with family - Allergies and Medications Current Medications: Allergies No Known Allergies Allergy (Unverified 01/25/19 07:16) Home Medications Medication Instructions Recorded Confirmed Last Taken Type Meclizine [Antivert] 25 mg PO TID PRN #12 tablet 01/25/19 Unknown Rx Ondansetron [Zofran Odt] 4 mg PO Q8HR PRN #10 tab.rapdis 01/25/19 Unknown Rx predniSONE [Deltasone] 20 mg PO QDAY #5 tab 01/25/19 Unknown Rx Active Medications Sodium Chloride (Nacl 0.9% 1000 Ml) 1,000 mls @ 50 mls/hr IV DIRECT UNA - Physical exam General appearance: no acute distress, mild distress, well-nourished, cachectic Integumentary: no rash, no growths, no abnormal pigmentation HEENT: Atraumatic, PERRLA, EOMI, Mucous membr. moist/pink Lungs: Clear to auscultation, Normal air movement Breasts: deferred Heart: Regular rate, Normal S1, Normal S2, No murmurs Gastrointestinal: normoactive bowel sounds, no tenderness, no distended, no masses, no guarding, no organomegaly, no obese Male Genitourinary: deferred Rectal Exam: normal exam-external/orifice, normal rectal tone, no hemorrhoids, stool brown, no mass Extremities: no ischemia, pulses intact, pulses symmetrical, No edema, normal temperature, normal color Neurological: no Normal gait, no Normal speech, no Strength at 5/5 X4 ext, Normal tone, Sensation intact, Cranial nerves 3-12 NL, Other (Left hemiplegia) - Brief post op/procedure progress note Date of procedure: 08/14/22 Findings: see dictation Estimated blood loss: none Pathology: none Condition: stable - Disposition Condition at discharge: Good Disposition: 01 HOME / SELF CARE / HOMELESS - Discharge Diagnoses (1) Colon cancer screening Status: Acute Short Stay Discharge Plan Follow up with: CRISTINA SOLER MD [Primary Care Provider] - 7 Days
--- NOTE | 2022-08-14 08:34 | Anesthesia Consultation ---
Anesthesia Consult and Med Hx Date of service: 08/14/22 - Airway Mental/Hyoid Distance: Adequate Mallampati Class: Class I Intubation Access Assessment: Probably Good - Pulmonary Exam CTA: Yes - Cardiac Exam Cardiac Exam: RRR - Pre-Operative Health Status ASA Pre-Surgery Classification: ASA3 Proposed Anesthetic Plan: MAC - Pulmonary Hx Respiratory Symptoms: No - Cardiovascular System Hx Hypertension: Yes - Central Nervous System CVA: Yes (L sided weakness) - Endocrine Hx Renal Disease: No Hx Liver Disease: No Hx Insulin Dependent Diabetes: No
--- NOTE | 2022-08-14 08:34 | Anesthesia Day of Surgery ---
Anesthesia Day of Surgery - Day of Surgery Patient Examined: Yes Patient H&P Reviewed: Yes Patient is NPO: Yes
--- NOTE | 2022-08-14 08:36 | Operative Report ---
Operative Report Operative Report: Date of procedure: 08/14/2022 Preprocedure diagnosis: Colon cancer screening. Average risk. No prior studies . Post procedure diagnoses: Extremely poor prep. Procedure: Flexible sigmoidoscopy. Colonoscopy was intended. Endoscopist: Germán Salguero M.D. Estimated blood loss: 0 Medications: [Propofol per anesthesia After careful discussion of the nature and purpose of the procedure, risks, benefits, and alternatives consent was obtained. The patient was placed in the left lateral decubitus position and medicated per anesthesia-see separate records for details. A rectal exam was performed. Sphincter tone was normal and no masses were palpable. The tip of the Olympus video scope was passed rodriguez sanally and advanced under continuous direct vision to 30cm. Colon preparation was extremely poor with formed stool precluding a view of the mucosa. Colonoscopy could therefore not be completed. The truncated procedure was well- tolerated overall. Conclusions: Poor prep. Flexible sigmoidoscopy done although colonoscopy intended. Plan: Repeat study within the next few months with an enhanced prep regimen.. Electronically signing: Germán Salguero M.D.
[2022-08-14 09:44] VITALS: BP 153/89
--- NOTE | 2022-08-14 09:53 | Post Anesthesia Evaluation ---
- Post Anesthesia Evaluation Patient Participated: Yes Airway Patent: Yes Stable Respiratory Function: Yes Nausea/Vomiting: No Temp > 96.8F: Yes Pain Manageable: Yes Adequeate Hydration: Yes Anesthesia Complications: No
== END 2022-08-14 09:20 | disposition home or self-care (01) ==
LOC: GIO 07:11
PROVIDERS: ATTEND Internal Medicine Gastroenterology
DX: Z12.11 Encounter for screening for malignant neoplasm of colon (principal); E78.00 Pure hypercholesterolemia, unspecified; I10 Essential (primary) hypertension; Z79.899 Other long term (current) drug therapy; Z87.891 Personal history of nicotine dependence; Z86.73 Personal history of transient ischemic attack (TIA), and cerebral infarction without residual deficits
CPT/HCPCS: 45330; J2704; J7030